=== PATIENT | female | born 1965 | race Caucasian/White ===

== ENCOUNTER 2016-12-19 16:22 | Emergency (ER) | payer OTHER ==
[~2016-12-19] VITALS: Ht 162.6 cm; Wt 75.0 kg
[2016-12-19] MEDS ORDERED: TRAMADOL HCL50 MG PO (18:34)
[2016-12-19 18:49] VITALS: BP 119/87
== END 2016-12-19 19:06 | disposition home or self-care (01) ==
LOC: EME 16:22
DX: I82.401 Acute embolism and thrombosis of unspecified deep veins of right lower extremity (principal); Z86.718 Personal history of other venous thrombosis and embolism; Z79.01 Long term (current) use of anticoagulants; Z87.891 Personal history of nicotine dependence
CPT/HCPCS: 93971; 99281; 99284